=== PATIENT | male | born 1950 | race Caucasian/White ===

== ENCOUNTER 2017-04-05 20:13 | Inpatient (IN) | payer MEDICARE ==
[~2017-04-05] VITALS: Ht 196.8 cm; Wt 116.8 kg
[~2017-04-05 20:13] MED LIST: ASPI325T24 PO; CENTTAB9 PO; GLIM2TAB PO; GLUCTAB PO; LOFI54TA PO; LOSA50TA PO; METF500 PO; NITR0.4S SL; PROT40TA PO; ROSU40 PO; XANA1TAB6 PO; [UNRECOGNIZED DRUG - CODE] PO
[2017-04-05 20:26] VITALS: BP 136/85; PULSE 127; RESP 20; TEMP 98.5; O2SAT 92
[2017-04-05] MEDS ORDERED: SODIUM CHLOR 0.9% 1000 ML INJ 1,000 ML IV SCH (20:34)
[2017-04-05] MEDS ORDERED: GLIM2TAB PO (20:43)
[2017-04-05] MEDS ORDERED: ASPI325T33 PO (20:43)
[2017-04-05] MEDS ORDERED: LOSA50TA PO (20:43)
[2017-04-05] MEDS ORDERED: XANA1TAB2 PO (20:43)
[2017-04-05] MEDS ORDERED: METF500 PO (20:43)
[2017-04-05] MEDS ORDERED: PENT1TAB8 (20:43)
[2017-04-05] MEDS ORDERED: LIPI10TA PO (20:43)
[2017-04-05] MEDS ORDERED: SODIUM CHLORIDE 0.9% FLUSH 10 ML FLUSH IVF PRN (20:45)
[2017-04-05] MEDS ORDERED: ATENOLOL 25 MG TAB PO ONE (20:45)
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
--- NOTE | 2017-04-05 21:24 | RADRPT ---
EXAM DATE/TIME: 04/05/2017 20:47 [facility] COMPARISON: No previous studies available for comparison. INDICATIONS : Fall this evening. MEDICAL HISTORY : Diabetes mellitus type II. SURGICAL HISTORY : None. ENCOUNTER: Initial ACUITY: 1 day PAIN SCORE: 2/10 LOCATION: Bilateral upper chest FINDINGS: A single view of the chest demonstrates the lungs to be symmetrically aerated without evidence of mas s, infiltrate or effusion. The cardiomediastinal contours are unremarkable. Osseous structures are intact. CONCLUSION: 1. No active disease. There is a mildly tortuous aorta. Herberth Nicole MD on April 05, 2017 at 21:22 Board Certified Radiologist. This report was verified electronically.
--- NOTE | 2017-04-05 21:26 | RADRPT ---
EXAM DATE/TIME: 04/05/2017 20:50 [facility] COMPARISON: No previous studies available for comparison. INDICATIONS : Bilateral elbow pain post fall this p.m. MEDICAL HISTORY : Diabetes mellitus type II. SURGICAL HISTORY : None. ENCOUNTER: Initial ACUITY: 1 day PAIN SCORE: 7/10 LOCATION: Bilateral upper extremity FINDINGS: Multiple view examination of the left elbow demonstrates no soft tissue swelling, joint effusion, or fracture. The osseous structures are in normal alignment. Bony mineralization is normal. CONCLUSION: Unremarkable examination of the left elbow. Herberth Nicole MD on April 05, 2017 at 21:23 Board Certified Radiologist. This report was verified electronically.
--- NOTE | 2017-04-05 21:27 | RADRPT ---
EXAM DATE/TIME: 04/05/2017 20:53 [facility] COMPARISON: No previous studies available for comparison. INDICATIONS : Bilateral foot pain post fall this p.m. MEDICAL HISTORY : Diabetes mellitus type II. SURGICAL HISTORY : None. ENCOUNTER: Initial ACUITY: 1 day PAIN SCORE: 9/10 LOCATION: Bilateral foot FINDINGS: Three view examination of the left foot demonstrates no soft tissue swelling, dislocation, or fractur e. The tarsal bones appear intact. The interphalangeal and metatarsophalangeal joints are intact. The calcaneus is intact. Bony mineralization is normal. CONCLUSION: 1. No acute findings. Herberth Nicole MD on April 05, 2017 at 21:24 Board Certified Radiologist. This report was verified electronically.
--- NOTE | 2017-04-05 21:31 | RADRPT ---
EXAM DATE/TIME: 04/05/2017 20:57 [facility] COMPARISON: FOOT LEFT COMPLETE ([id number]), April 05, 2017, 20:53. INDICATIONS : Bilateral foot pain post fall this p.m. MEDICAL HISTORY : Diabetes mellitus type II. SURGICAL HISTORY : right hip surgery ENCOUNTER: Initial ACUITY: 1 day PAIN SCORE: 9/10 LOCATION: Bilateral feet FINDINGS: Number there is a dislocation of the proximal interphalangeal joint of the second toe. No acute fract ure identified. No bony destructive changes. Mild osteoarthritis. CONCLUSION: 1. Dislocation of the second toe at the proximal interphalangeal joint. No acute fracture identified. Herberth Nicole MD on April 05, 2017 at 21:26 Board Certified Radiologist. This report was verified electronically.
--- NOTE | 2017-04-05 21:32 | RADRPT ---
EXAM DATE/TIME: 04/05/2017 21:00 [facility] COMPARISON: No previous studies available for comparison. INDICATIONS : Bilateral knee pian post fall this p.m. MEDICAL HISTORY : Diabetes mellitus type II. SURGICAL HISTORY : orif right femur ENCOUNTER: Initial ACUITY: 1 day PAIN SCORE: 8/10 LOCATION: Bilateral knee FINDINGS: Four view examination of the right knee demonstrates no evidence of fracture or dislocation. Bony mi neralization is normal. The articular surfaces demonstrate mild osteoarthritis. The suprapatellar so ft tissues have a normal configuration. CONCLUSION: 1. There is mild osteoarthritis of the right knee. Previous patricia fixation of the right femur. Herberth Nicole MD on April 05, 2017 at 21:29 Board Certified Radiologist. This report was verified electronically.
--- NOTE | 2017-04-05 21:33 | RADRPT ---
EXAM DATE/TIME: 04/05/2017 21:01 [facility] COMPARISON: No previous studies available for comparison. INDICATIONS : Bilateral knee pain post fall this p.m. MEDICAL HISTORY : Diabetes mellitus type II. SURGICAL HISTORY : orif R/ femur ENCOUNTER: Initial ACUITY: 1 day PAIN SCORE: 8/10 LOCATION: Bilateral knee FINDINGS: There is moderate osteoarthritis at the medial joint compartment. Small joint effusion. No acute frac ture or subluxation. CONCLUSION: 1. Moderate osteoarthritis left knee with small joint effusion. No acute fracture. Herberth Nicole MD on April 05, 2017 at 21:30 Board Certified Radiologist. This report was verified electronically.
[2017-04-05 21:43] LABS: AUTOMATED NEUTROPHIL # 10.4 TH/MM3 (1.8-7.7); BASOPHIL % 0.3 % (0.0-2.0); EOSINOPHIL % 0.1 % (0.0-4.0); HEMATOCRIT 48.2 % (39.0-51.0); HEMO FLAGS DIFF FINAL; LYMPH % 7.4 % (9.0-44.0); LYMPHOCYTE # 0.9 TH/MM3 (1.0-4.8); MEAN CELL VOLUME 101.8 FL (80.0-100.0); MEAN CORPUSCULAR HEMOGLOBIN 34.3 PG (27.0-34.0); MEAN CORPUSCULAR HGB CONC 33.7 % (32.0-36.0); MONO % 7.1 % (0.0-8.0); NEUT % 85.1 % (16.0-70.0); PLATELET COUNT 188 TH/MM3 (150-450); RED BLOOD COUNT 4.74 MIL/MM3 (4.50-5.90); RED CELL DISTRIBUTION WIDTH 13.3 % (11.6-17.2); WHITE BLOOD COUNT 12.3 TH/MM3 (4.0-11.0)
--- NOTE | 2017-04-05 21:47 | RADRPT ---
EXAM DATE/TIME: 04/05/2017 20:49 [facility] COMPARISON: No previous studies available for comparison. INDICATIONS : Bilateral elbow pain post fall this p.m. MEDICAL HISTORY : Diabetes mellitus type II. SURGICAL HISTORY : ORIF R/ femur ENCOUNTER: Initial ACUITY: 1 day PAIN SCORE: 9/10 LOCATION: Bilateral elbow FINDINGS: Multiple view examination of the right elbow demonstrates no soft tissue swelling, joint effusion, or fracture. The osseous structures are in normal alignment. Bony mineralization is normal. CONCLUSION: Unremarkable examination of the right elbow. Herberth Nicole MD on April 05, 2017 at 21:44 Board Certified Radiologist. This report was verified electronically.
[2017-04-05 21:57] LABS: APTT (PATIENT) 26.2 SEC (24.3-30.1); PROTHROMBIN TIME - PATIENT 11.1 SEC (9.8-11.6)
[2017-04-05 22:10] LABS: POTASSIUM 4.5 MEQ/L (3.5-5.1)
--- NOTE | 2017-04-05 22:18 | PD ---
Physical Exam Narrative I was asked by Dr. Taylor to reduce patient's dislocated toe. Please see her documentation for full H&P. Data Data Last Documented VS Vital Signs Date Time Temp Pulse Resp B/P Pulse Ox O2 Delivery O2 Flow Rate FiO2 04/05/17 20:26 98.5 127 20 136/85 92 Orders Elbow, Complete (4 Vws) (04/05/17 20:34) Foot, Complete ([id number]) (04/05/17 20:34) Knee, Complete (4vws) (04/05/17 20:34) Elbow, Complete (4 Vws) (04/05/17 20:34) Foot, Complete ([id number]) (04/05/17 20:34) Knee, Complete (4vws) (04/05/17 20:34) Basic Metabolic Panel (Bmp) (04/05/17 20:34) Complete Blood Count With Diff (04/05/17 20:34) Prothrombin Time / Inr (Pt) (04/05/17 20:34) Act Partial Throm Time (Ptt) (04/05/17 20:34) Urinalysis - C+S If Indicated (04/05/17 20:34) Chest, Single Ap (04/05/17 20:34) Iv Access Insert/Monitor (04/05/17 20:34) Ecg Monitoring (04/05/17 20:34) Oximetry (04/05/17 20:34) Sodium Chlor 0.9% 1000 Ml Inj (Ns 1000 M (04/05/17 20:34) Sodium Chloride 0.9% Flush (Ns Flush) (04/05/17 20:45) Electrocardiogram (04/05/17 ) Creatine Kinase (Cpk) (04/05/17 20:34) Atenolol (Tenormin) (04/05/17 20:45) Cath For Specimen (04/05/17 21:58) Toe (Min 2vws) (04/05/17 ) Morphine Inj (Morphine Inj) (04/05/17 22:30) CKMB (04/05/17 21:20) CKMB% (04/05/17 21:20) Labs Laboratory Tests Test 04/05/17 21:20 White Blood Count 12.3 TH/MM3 Red Blood Count 4.74 MIL/MM3 Hemoglobin 16.3 GM/DL Hematocrit 48.2 % Mean Corpuscular Volume 101.8 FL Mean Corpuscular Hemoglobin 34.3 PG Mean Corpuscular Hemoglobin 33.7 % Concent Red Cell Distribution Width 13.3 % Platelet Count 188 TH/MM3 Mean Platelet Volume 8.1 FL Neutrophils (%) (Auto) 85.1 % Lymphocytes (%) (Auto) 7.4 % Monocytes (%) (Auto) 7.1 % Eosinophils (%) (Auto) 0.1 % Basophils (%) (Auto) 0.3 % Neutrophils # (Auto) 10.4 TH/MM3 Lymphocytes # (Auto) 0.9 TH/MM3 Monocytes # (Auto) 0.9 TH/MM3 Eosinophils # (Auto) 0.0 TH/MM3 Basophils # (Auto) 0.0 TH/MM3 CBC Comment DIFF FINAL Differential Comment Prothrombin Time 11.1 SEC Prothromb Time International 1.0 RATIO Ratio Activated Partial 26.2 SEC Thromboplast Time Sodium Level 137 MEQ/L Potassium Level 4.5 MEQ/L Chloride Level 100 MEQ/L Carbon Dioxide Level 19.0 MEQ/L Anion Gap 18 MEQ/L Blood Urea Nitrogen 11 MG/DL Creatinine 2.26 MG/DL Estimat Glomerular Filtration 29 ML/MIN Rate Random Glucose 206 MG/DL Calcium Level 9.7 MG/DL Total Creatine Kinase 2381 U/L [facility] Supervised Visit with RADHA: No Narrative Course 2240 Repeat x-ray shows no change. Patient's toe was reassessed. I suspect this is likely patient's chronic issue with this toe. I discussed this with Dr. Taylor, who will reassess patient. Procedures Procedure Narrative Patient reports that he has had issues with that toe from previous fracture that was not reduced properly and feels his toe might be slightly angulated more than normal, but is uncertain. Verbal consent was obtained. Dislocated toe was attempted to be reduced. [place] to be a successful reduction. Will check repeat x-rays. Affected toe to be morgan taped by DAVON. Jatin Clements Apr 05, 2017 22:17
[2017-04-05] MEDS ORDERED: MORPHINE SULFATE 4 MG/ML INJ IV PUSH ONE (22:30)
[2017-04-05 22:48] LABS: BLOOD, URINE MOD (NEG); GLUCOSE,URINE NEG (NEG); HYALINE CAST, URINE 1 /lpf (RARE); KETONE, URINE NEG (NEG); NITRITE,URINE NEG (NEG); URINE COLOR LIGHT-YELLOW (YELLW/STRAW)
--- NOTE | 2017-04-05 22:57 | RADRPT ---
EXAM DATE/TIME: 04/05/2017 22:28 [facility] COMPARISON: No previous studies available for comparison. INDICATIONS : Evaluate post reduction right foot, second digit toe. MEDICAL HISTORY : Diabetes mellitus type II. SURGICAL HISTORY : orif R/ femur ENCOUNTER: Subsequent ACUITY: 1 day PAIN SCORE: 8/10 LOCATION: Right foot, second digit FINDINGS: Dislocation of the second toe remains at the proximal interphalangeal joint. No fracture seen. CONCLUSION: 1. Persistent dislocation of the right second toe. Herberth Nicole MD on April 05, 2017 at 22:54 Board Certified Radiologist. This report was verified electronically.
[2017-04-05 22:59] LABS: COMMENT (UR) CULT NOT INDICATED; CULTURE IF INDICATED CULT NOT INDICATED
[2017-04-05 23:08] LABS: CKMB 3.1 NG/ML (0.5-3.6)
[2017-04-05] MEDS ORDERED: ONDANSETRON HCL 4 MG/2 ML VIAL IVP PRN (23:30)
[2017-04-05] MEDS ORDERED: SODIUM CHLORIDE 0.9% FLUSH 10 ML FLUSH IV FLUSH PRN (23:30)
[2017-04-05] MEDS ORDERED: NALOXONE HCL 0.4 MG/ML AMP IV PRN (23:30)
[2017-04-05] MEDS ORDERED: ACETAMINOPHEN 325 MG TAB PO PRN (23:30)
[2017-04-05 23:45] VITALS: BP 144/82; PULSE 108; RESP 16; O2SAT 100
[2017-04-06] VITALS (7 sets, daily range): BP systolic 130–187; BP diastolic 78–99; PULSE 63–109; RESP 14–18; TEMP 96.2–97.8; O2SAT 96–100
[2017-04-06] MEDS: HEPARIN SODIUM - SQ 10,000 UNITS/ML VIAL SQ SCH ×3 (00:15→22:15)
[2017-04-06] MEDS: SODIUM CHLOR 0.9% 1000 ML INJ 1,000 ML IV SCH ×3 (00:15→17:30)
[2017-04-06] MEDS: MORPHINE SULFATE 4 MG/ML INJ IV PRN ×5 (02:55→22:14)
[2017-04-06] MEDS ORDERED: ATENOLOL 25 MG TAB PO ONE (03:00)
[2017-04-06 04:04] LABS: AUTOMATED NEUTROPHIL # 5.6 TH/MM3 (1.8-7.7); BASOPHIL % 0.6 % (0.0-2.0); EOSINOPHIL % 0.2 % (0.0-4.0); HEMATOCRIT 41.3 % (39.0-51.0); HEMO FLAGS DIFF FINAL; LYMPH % 15.3 % (9.0-44.0); LYMPHOCYTE # 1.1 TH/MM3 (1.0-4.8); MEAN CELL VOLUME 100.7 FL (80.0-100.0); MEAN CORPUSCULAR HEMOGLOBIN 34.8 PG (27.0-34.0); MEAN CORPUSCULAR HGB CONC 34.6 % (32.0-36.0); MONO % 7.7 % (0.0-8.0); NEUT % 76.2 % (16.0-70.0); PLATELET COUNT 127 TH/MM3 (150-450); RED CELL DISTRIBUTION WIDTH 12.9 % (11.6-17.2); WHITE BLOOD COUNT 7.4 TH/MM3 (4.0-11.0)
[2017-04-06 04:41] LABS: BICARBONATE 28.6 MEQ/L (21.0-32.0)
[2017-04-06 04:45] LABS: POTASSIUM 4.8 MEQ/L (3.5-5.1)
[2017-04-06 05:06] LABS: CKMB 7.9 NG/ML (0.5-3.6)
[2017-04-06] MEDS: LOSARTAN 50 MG TAB PO SCH ×2 (08:29→19:54)
[2017-04-06] MEDS: SODIUM CHLORIDE 0.9% FLUSH 10 ML FLUSH IV FLUSH SCH ×2 (08:31→20:01)
[2017-04-06] MEDS ORDERED: GLUCAGON 1 MG/ML VIAL OTHER PRN (09:15)
[2017-04-06] MEDS ORDERED: LOSARTAN 50 MG TAB PO SCH (09:15)
[2017-04-06] MEDS ORDERED: DEXTROSE 50% IN WATER 50 ML VIAL(D50) IV PRN (09:15)
[2017-04-06] MEDS ORDERED: LIDOCAINE HCL 1% 20 ML VIAL INFIL ONE (10:00)
--- NOTE | 2017-04-06 10:10 | RADRPT ---
EXAM DATE/TIME: 04/06/2017 09:40 [facility] COMPARISON: SPINE LUMBAR COMPLETE W/OBLIQ, April 15, 2014, 9:51. INDICATIONS : Right-sided lower back pain after fall yesterday. MEDICAL HISTORY : None. SURGICAL HISTORY : Lumbar laminectomy. ENCOUNTER: Initial ACUITY: 2 days PAIN SCORE: 10/10 LOCATION: Right lower back. FINDINGS: There are degenerative changes in the lumbar spine. There is loss of vertebral body height at L1 by approximately 30%. There is minimal compression of T11. There is minimal compression of L3. There is some sclerosis of L5. Anterior osteophytes are noted. Mild scoliosis is evident. Degenerative changes are present in the facets. CONCLUSION: 1. Abnormal lumbar spine series. 2. There has been mild progression from 04/15/2014. The most significant progression has been at L3. Evan Rojas MD FACR on April 06, 2017 at 10:02 Board Certified Radiologist. This report was verified electronically.
--- NOTE | 2017-04-06 10:31 | RADRPT ---
EXAM DATE/TIME: 04/06/2017 09:42 [facility] COMPARISON: No previous studies available for comparison. INDICATIONS : Right lower back pain after fall last night. MEDICAL HISTORY : None. SURGICAL HISTORY : Lumbar laminectomy. ENCOUNTER: Initial ACUITY: 2 days PAIN SCORE: 10/10 LOCATION: Sacrum. FINDINGS: Two views of the sacrum reveal degenerative changes without fracture. There is loss of vertebral bod y height at L5. CONCLUSION: Anatomic alignment without fracture. Evan Rojas MD FACR on April 06, 2017 at 10:24 Board Certified Radiologist. This report was verified electronically.
[2017-04-06] MEDS: INSULIN NovoLIN REGULAR SUPPLEMENTAL SCALE SQ SCH ×3 (11:00→20:04)
[2017-04-06] MEDS: DOCUSATE SODIUM 50 MG/SENNA 8.6 MG TAB PO PRN (11:40)
[2017-04-06] MEDS: MAGNESIUM HYDROXIDE SUSP 30 ML CUP PO PRN (11:40)
[2017-04-06] MEDS: ASPIRIN EC 325 MG TABEC PO SCH (11:40)
[2017-04-06] MEDS: FAMOTIDINE 20 MG TAB PO SCH ×2 (11:41→19:54)
--- NOTE | 2017-04-06 13:18 | HHI.PR ---
Objective Objective Results - Vital Signs Date Time Temp Pulse Resp B/P Pulse Ox O2 Delivery O2 Flow Rate FiO2 04/06/17 12:00 97.3 66 18 167/92 98 04/06/17 08:00 97.8 94 18 164/97 99 04/06/17 04:00 97.1 106 16 172/97 96 04/06/17 01:14 97.6 109 16 187/94 98 04/06/17 00:44 100 14 130/78 99 Room Air 04/05/17 23:45 108 16 144/82 100 Room Air 04/05/17 20:26 98.5 127 20 136/85 92 I/O 04/05/17 04/05/17 04/05/17 04/06/17 04/06/17 04/06/17 07:00 15:00 23:00 07:00 15:00 23:00 Intake Total 780 ml 909 ml Balance 780 ml 909 ml Intake Oral 780 ml IV Total 909 ml # Voids 1 # Bowel Movements 0 Result Diagram: 04/06/17 0327 04/06/17 0327 Other Results Laboratory Tests Test 04/05/17 04/05/17 04/06/17 04/06/17 21:20 22:15 03:27 11:56 White Blood Count 12.3 7.4 Red Blood Count 4.74 4.10 Hemoglobin 16.3 14.3 Hematocrit 48.2 41.3 Mean Corpuscular Volume 101.8 100.7 Mean Corpuscular Hemoglobin 34.3 34.8 Mean Corpuscular Hemoglobin 33.7 34.6 Concent Red Cell Distribution Width 13.3 12.9 Platelet Count 188 127 Mean Platelet Volume 8.1 8.4 Neutrophils (%) (Auto) 85.1 76.2 Lymphocytes (%) (Auto) 7.4 15.3 Monocytes (%) (Auto) 7.1 7.7 Eosinophils (%) (Auto) 0.1 0.2 Basophils (%) (Auto) 0.3 0.6 Neutrophils # (Auto) 10.4 5.6 Lymphocytes # (Auto) 0.9 1.1 Monocytes # (Auto) 0.9 0.6 Eosinophils # (Auto) 0.0 0.0 Basophils # (Auto) 0.0 0.0 CBC Comment DIFF FINAL DIFF FINAL Differential Comment Prothrombin Time 11.1 Prothromb Time International 1.0 Ratio Activated Partial 26.2 Thromboplast Time Sodium Level 137 139 Potassium Level 4.5 4.8 Chloride Level 100 103 Carbon Dioxide Level 19.0 28.6 Anion Gap 18 7 Blood Urea Nitrogen 11 13 Creatinine 2.26 1.96 Estimat Glomerular Filtration 29 34 Rate Random Glucose 206 199 Calcium Level 9.7 8.8 Total Creatine Kinase 2381 6159 4999 Creatine Kinase MB 3.1 7.9 Creatine Kinase MB % 0.1 0.1 Urine Color LIGHT-YELLOW Urine Turbidity CLEAR Urine pH 6.0 Urine Specific [place] 1.005 Urine Protein TRACE Urine Glucose (UA) NEG Urine Ketones NEG Urine Occult Blood MOD Urine Nitrite NEG Urine Bilirubin NEG Urine Urobilinogen LESS THAN 2.0 Urine Leukocyte Esterase NEG Urine RBC 1 Urine WBC LESS THAN 1 Urine Hyaline Casts 1 Microscopic Urinalysis Comment CULT NOT INDICATED Physical Exam Physical Exam pt is seen & examined d/w PT d/w Beena d/w RN see Orders see H&P by beena IVF/ f/u CPK analgesic PT alexa ss for dc planning will f/u Alexis Cintron MD Apr 06, 2017 13:18
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
--- NOTE | 2017-04-06 18:17 | RADRPT ---
EXAM DATE/TIME: 04/06/2017 17:46 [facility] COMPARISON: No previous studies available for comparison. INDICATIONS : Inability to ambulate. Back pain, frequent falls. MEDICAL HISTORY : Diabetes mellitus type 2. Hypertension. SURGICAL HISTORY : Tonsillectomy. Discectomy, lumbar. Inguinal hernia repair. Right femur patricia. ENCOUNTER: Initial ACUITY: 1 day PAIN SCORE: 4/10 LOCATION: [facility] TECHNIQUE: Multiplanar multisequence MRI of the thoracic spine was performed. FINDINGS: There is no fracture or subluxation of the thoracic spine. Vertebral bodies have normal height. No si gnificant disc space narrowing demonstrated. There is a small posterior disc protrusion at C7/T1 and a tiny posterior disc protrusion at T1/T2 and T2/T3. There is no spinal stenosis. Mild bilateral fora adis encroachment seen at T1/T2. Thoracic cord has normal signal and morphology throughout. Conus terminus is normal at the level of L 1. CONCLUSION: No acute abnormality demonstrated of the thoracic spine. Mild, mainly upper thoracic and cervicothora cic junction region degenerative changes as above. Associated mild bilateral foraminal stenosis at T1 /T2. No spinal stenosis. Nehemiah Bright MD on April 06, 2017 at 18:12 Board Certified Radiologist. This report was verified electronically.
--- NOTE | 2017-04-06 18:30 | RADRPT ---
EXAM DATE/TIME: 04/06/2017 17:46 [facility] COMPARISON: No previous studies available for comparison. INDICATIONS : Inability to ambulate. Back pain, frequent falls. MEDICAL HISTORY : Hypertension. Diabetes mellitus type 2. SURGICAL HISTORY : Tonsillectomy. Inguinal hernia repair. Discectomy, lumbar. Right femur patricia. ENCOUNTER: Initial ACUITY: 1 day PAIN SCORE: 4/10 LOCATION: [facility] TECHNIQUE: Multiplanar, multisequence MRI examination of the cervical spine was performed. FINDINGS: At C2-3 there is no significant abnormality. At C3-4 there is a broadbase posterior disc ossified complex with moderate stenosis in AP dimension r esulting in mild cord compression. There is also lateral recess and foraminal stenosis bilaterally. At C4-5, C5-6, C6-7 and C7-T1 there is mild posterior osteophytic ridging but without CORD impingemen t. Minimal lateral recess and foraminal encroachment at these levels as well. No acute fracture. No cord signal abnormality. CONCLUSION: 1. At C3-4 there is a focal broad-based disc osteophyte complex resulting in moderate canal stenosis, mild cord compression and moderate to severe lateral recess and foraminal encroachment bilaterally. 2. Less severe degenerative change in the remainder of the cervical spine without additional cord imp ingement. No acute fracture. Herberth Nicole MD on April 06, 2017 at 18:22 Board Certified Radiologist. This report was verified electronically.
--- NOTE | 2017-04-06 18:37 | RADRPT ---
EXAM DATE/TIME: 04/06/2017 17:46 [facility] COMPARISON: No previous studies available for comparison. INDICATIONS : Inability to ambulate. Back pain, frequent falls. MEDICAL HISTORY : Hypertension. Diabetes mellitus type 2. SURGICAL HISTORY : Tonsillectomy. Discectomy, lumbar. Inguinal hernia repair. Right femur patricia. ENCOUNTER: Initial ACUITY: 1 day PAIN SCORE: 4/10 LOCATION: [facility] TECHNIQUE: Multiplanar multisequence MRI of the lumbar spine was performed without contrast. FINDINGS: There are moderate compression deformities of L1, L3, L4 and L5 which appear to be old. Mild compress ion deformity L2. No subluxation. No significant marrow edema. At T12-L1 and L1-2 there is no significant abnormality at the disc interspace. At L2-3 there is a broad-based disc osteophyte complex and facet arthropathy with focal moderate to s evere thecal stenosis and lateral recess and foraminal encroachment bilaterally. At L3-4 there is a posterior disc bulge and facet arthropathy but without significant central canal o r bony foraminal stenosis. L4-5 there is a broad-based disc osteophyte complex and mild disc bulge or protrusion with facet arth ropathy. There is a moderate central canal stenosis and mild lateral recess and foraminal stenosis bi laterally. Posterior laminectomy defect present. L5-S1 there is a disc bulge but without significant bony canal stenosis. Mild foraminal encroachment. CONCLUSION: 1. Compression deformities at every level of the lumbar spine as above which are probably old. 2. At L2-3 there is focal moderate to severe canal stenosis secondary to disc osteophyte complex and facet arthropathy. 3. At L4-5 there is moderate central canal stenosis secondary to facet arthropathy and disc bulge or protrusion. 4. There is posterior laminectomy defect at L4 and L5. Herberth Nicole MD on April 06, 2017 at 18:31 Board Certified Radiologist. This report was verified electronically.
--- NOTE | 2017-04-06 18:52 | MB ---
cc: LETA GAY DATE OF CONSULTATION 04/06/17 REASON FOR CONSULTATION Progressive weakness, elevated CPK. HISTORY OF PRESENT ILLNESS Connor is a 66-year-old man who for the past 6 months or so has noted progressive weakness in both upper and lower extremities which has been gradually progressive. He has also developed a long history of orthostatic hypotension. He had an episode where he suddenly got up quickly, felt very weak and fell to the floor. He was unable to get up because of the significant weakness. He was brought to the hospital. There was no tonic-clonic activity. Denies any double vision. He denies any ptosis or swallowing difficulty. He was found to have an elevated CPK, initially yesterday was 2381; earlier today was 6159, has since come down to 4999. PAST MEDICAL HISTORY He has a history of orthostatic hypotension. Mitral valve prolapse, lumbar stenosis, lumbar surgery. Inguinal cyst removal, tonsillectomy, right hip pinning, right femoral patricia. MEDICATIONS His medications at home: 1. Xanax. 2. Aspirin. 3. Losartan. 4. Lipitor. 5. Glipizide. 6. Glucophage. 7. Pentazocine. ALLERGIES ALLERGIES TO CONTRAST MEDIA, DIFLUCAN, NSAIDS, TYLENOL. NEUROLOGIC EXAMINATION VITAL SIGNS: Blood pressure is 157/92, pulse 66, respiratory rate is 18, temperature 97 degrees. NEURO: Higher cortical functions normal. Cranial nerves are intact. There is no ptosis. His extraocular motility is normal. There is no facial diplegia. On motor examination he has 5/5 strength in the deltoids symmetric, 4+/5 biceps symmetric, 4+/5 triceps symmetric, 4+/5 interossei symmetric. The iliopsoas strength is 4/5 symmetric, quads 4/5 symmetric, hamstring 4/5 symmetric, ____ 4/5 symmetric. He does have atrophy diffusely. No fasciculations. Sensory exam is intact. He is areflexic in the upper and lower extremities. There is no Babinski present. LABORATORY DATA The sodium is 139, potassium 4.8, chloride 103, CO2 28.6, BUN is 13, creatinine 1.96, glucose 199. CPK today 4999. His white count is 7400, hemoglobin 14.3, hematocrit 41%, platelets 127,000, PT 11.1, INR 1, APTT 26.2. IMPRESSION Generalized weakness, rule out cervical or thoracic stenosis with cord compression, rule out neuropathy such as CIDP. Myopathy is a consideration, however, the elevated CPK may have been due to his weakness secondarily. RECOMMENDATIONS I would like to proceed with an MRI of the cervical, thoracic and lumbar spine. Will follow the CPK. If the CPK is persistently elevated consider muscle biopsy. May need to consider lumbar puncture to further evaluate for CIDP or also EMG nerve conduction study as well. MD MOHAN Grider/VASILIY /4:23 PM /6:43 PM
[2017-04-06] MEDS: GLIMEPIRIDE 2 MG TAB PO SCH (19:54)
[2017-04-06] MEDS ORDERED: metFORMIN HCL 500 MG TAB PO SCH (21:00)
[2017-04-07] VITALS (9 sets, daily range): BP systolic 162–193; BP diastolic 85–93; PULSE 63–96; RESP 17–18; TEMP 97.2–97.9; O2SAT 95–100
[2017-04-07] MEDS: MORPHINE SULFATE 4 MG/ML INJ IV PRN ×3 (03:04→12:00)
[2017-04-07] MEDS: SODIUM CHLOR 0.9% 1000 ML INJ 1,000 ML IV SCH ×4 (03:15→16:18)
[2017-04-07] MEDS: INSULIN NovoLIN REGULAR SUPPLEMENTAL SCALE SQ SCH ×4 (05:48→21:20)
[2017-04-07 06:57] LABS: HEMATOCRIT 36.3 % (39.0-51.0); PLATELET COUNT 101 TH/MM3 (150-450); RED BLOOD COUNT 3.63 MIL/MM3 (4.50-5.90); RED CELL DISTRIBUTION WIDTH 12.7 % (11.6-17.2); REVIEW FLAG FINAL; WHITE BLOOD COUNT 4.8 TH/MM3 (4.0-11.0)
[2017-04-07 07:18] LABS: BICARBONATE 25.9 MEQ/L (21.0-32.0); POTASSIUM 4.3 MEQ/L (3.5-5.1)
[2017-04-07 07:58] LABS: CKMB 3.1 NG/ML (0.5-3.6)
[2017-04-07] MEDS: DOCUSATE SODIUM 50 MG/SENNA 8.6 MG TAB PO PRN (08:28)
[2017-04-07] MEDS: ASPIRIN EC 325 MG TABEC PO SCH (08:28)
[2017-04-07] MEDS: LOSARTAN 50 MG TAB PO SCH ×2 (08:28→20:12)
[2017-04-07] MEDS: MAGNESIUM HYDROXIDE SUSP 30 ML CUP PO PRN (08:29)
[2017-04-07] MEDS: FAMOTIDINE 20 MG TAB PO SCH ×2 (08:29→20:13)
[2017-04-07] MEDS: SODIUM CHLORIDE 0.9% FLUSH 10 ML FLUSH IV FLUSH SCH ×2 (09:00→12:00)
[2017-04-07] MEDS: HEPARIN SODIUM - SQ 10,000 UNITS/ML VIAL SQ SCH (11:43)
[2017-04-07] MEDS: MUPIROCIN 2% OINT 22 GM TUBE TOPICAL SCH (11:46)
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
[2017-04-07] MEDS ORDERED: ACETAMINOPHEN/HYDROcodone 325 MG/7.5 MG TAB PO PRN (13:30)
--- NOTE | 2017-04-07 13:56 | HHI.PR ---
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 was seen by podiatry Review of Systems Constitutional Constitutional Remarks 12 point ros completed, negative except as noted above Vitals/Results Intake & Output 04/06/17 04/06/17 04/07/17 15:00 23:00 07:00 Intake Total 1559 ml 240 ml 240 ml Output Total 400 ml 400 ml Balance 1559 ml -160 ml -160 ml Intake Oral 650 ml 240 ml 240 ml IV Total 909 ml Output Urine Total 400 ml 400 ml # Voids 2 # Bowel Movements 0 0 0 Vital Signs Vital Signs Date Time Temp Pulse Resp B/P Pulse Ox O2 Delivery O2 Flow Rate FiO2 04/07/17 11:48 97.9 66 18 193/85 95 04/07/17 08:48 16 04/07/17 08:00 97.6 64 18 164/91 100 04/07/17 04:11 97.2 64 17 168/85 100 04/07/17 00:35 97.7 63 17 183/92 100 04/06/17 20:35 96.8 65 18 184/97 100 04/06/17 16:00 96.2 63 18 185/99 100 CBC/BMP: 04/07/17 0609 04/07/17 0609 Lab Results Laboratory Tests Test 04/07/17 06:09 White Blood Count 4.8 TH/MM3 Red Blood Count 3.63 MIL/MM3 Hemoglobin 12.7 GM/DL Hematocrit 36.3 % Mean Corpuscular Volume 100.0 FL Mean Corpuscular Hemoglobin 35.0 PG Mean Corpuscular Hemoglobin 35.0 % Concent Red Cell Distribution Width 12.7 % Platelet Count 101 TH/MM3 Mean Platelet Volume 8.1 FL Sodium Level 139 MEQ/L Potassium Level 4.3 MEQ/L Chloride Level 105 MEQ/L Carbon Dioxide Level 25.9 MEQ/L Anion Gap 8 MEQ/L Blood Urea Nitrogen 12 MG/DL Creatinine 1.38 MG/DL Estimat Glomerular Filtration 52 ML/MIN Rate Random Glucose 156 MG/DL Calcium Level 7.7 MG/DL Total Creatine Kinase 2957 U/L Creatine Kinase MB 3.1 NG/ML Creatine Kinase MB % 0.1 % Physical Exam General General Appearance: Well Developed, No Acute Distress, Comfortable, Obese Eyes Eye Exam: Pupils Equal, Pupils Reactive Ears & Nose Ears & Nose Exam: Nasal Mucosa Felt Throat Throat Exam: Oral Mucosa Felt & Moist Neck Neck Exam: Neck Supple, Trachea Midline Pulmonary Resp Exam: Clear Bilaterally, No Distress Cardiology CV Exam: Regular, Good Perfusion Gastrointestinal/Abdomen GI Exam: Soft, Non-Tender, Bowel Sounds Present, Non-Distended Musculoskeletal MS Exam: Joints Intact Integumentary Skin Exam: Warm, Dry Extremeties Extremities Exam: Pedal Pulses Palpable, Trace Edema Extremeties Remarks mild erythema both feet, tender to touch Neurologic Neuro Exam: Alert, Awake, Oriented, Speech Clear, Moving All Extremities, No Focal Deficits Psychiatric Psych Exam: Appropriate Responses VTE Prophylaxis VTE Prophylaxis Meds: Heparin PUD Prophylasis PUD Remarks Pepcid Assessment/Plan Assessment/Plan 1. Nontraumatic rhabdomyolysis, unknown cause. 2. Diabetes type 2, uncontrolled. 3. DUSTY 4. Leukocytosis 5. Right toe dislocation 6. HTN uncontrolled 7. Hx of DVT 8. Low back pain, radiculopathy, acute on chronic 9. Weakness etiology unclear 10. Radiculopathy, CT lumbar spine L2-L3 mod canal stenosis/C 2-C3 mild canal stenosis PLAN Rhabdomyolysis CPK trending down Dec. IVF NS @ 125/hr DUSTY, creat improving follow BMP BP uncontrolled inc. Cozaar to 100 mg PO BID Add Vasotec PRN Add Norvasc accuchecks with AC/HS no oral hypoglycemic due to DUSTY Weakness and acute on chronic back pain evaluated per neurology, work up in progress, rule myopathy, CIDP Cervical and lumbar spine MRI done, results noted consult neurosurgery for evaluation continue with pain management Left foot hallux ulceration right toe dislocation Podiatry evaluated, input appreciate, no surgery recommended needs to f//u podiatry as OP foot care emphasized CM for DC planning, will need SNF, eval for CIR PT eval and tx OT eval Labs in am D/W RN D/W Dr. Cintron D/W pt This pt was seen by myself and Dr. Cintron, this note is written on his behalf. Olivia Weinberg Apr 07, 2017 13:56
[2017-04-07] MEDS ORDERED: amLODIPine BESYLATE 5 MG TAB PO ONE (14:30)
--- NOTE | 2017-04-07 14:52 | HHI.PR ---
Review/Management Diagnosis pregressive weakness mainly of LE--possibly related to lumbar stenosis. Possible cervical myelopathy, but no hyperreflexia/babinski etc. Plan neurosurgery consult Diagnosis/Plan: Subjective Subjective Comments No acute events reported No change in LE or UE weakness. Active Medications Current Medications Medications (Trade) Dose Ordered Sig/Sandie Route Start Time Stop Time Status Last Admin (NS 1000 ml Inj) 1,000 ml @ 70 mls/hr [id number] IV 04/05/17 23:19 04/07/17 11:46 (NS Flush) 2 ml UNSCH PRN IV FLUSH 04/05/17 23:30 (NS Flush) 2 ml BID IV FLUSH 04/06/17 09:00 04/07/17 12:00 (Zofran Inj) 4 mg Q6H PRN IVP 04/05/17 23:30 (Heparin Inj) 5,000 units Q12H SQ 04/06/17 00:00 04/07/17 11:43 (Narcan Inj) 0.4 mg UNSCH PRN IV 04/05/17 23:30 (Morphine Inj) 2 mg Q4H PRN IV 04/06/17 03:00 04/07/17 12:00 (Pepcid) 10 mg BID PO 04/06/17 10:00 04/07/17 08:29 (Ecotrin Ec) 325 mg DAILY PO 04/06/17 10:00 04/07/17 08:28 (Amaryl) 2 mg HS PO 04/06/17 21:00 04/06/17 19:54 (Glucophage) 500 mg HS PO 04/06/17 21:00 Hold 04/06/17 19:53 (D50w (Vial) Inj) 50 ml UNSCH PRN IV 04/06/17 09:15 (Glucagon Inj) 1 mg UNSCH PRN OTHER 04/06/17 09:15 (Tali-Colace) 1 tab BID PRN PO 04/06/17 09:15 04/07/17 08:28 (Milk Of Magnesia Liq) 30 ml DAILY PRN PO 04/06/17 09:15 04/07/17 08:29 (Bactroban 2% Oint) 1 applic DAILY TOPICAL 04/07/17 11:15 04/07/17 11:46 (Vasotec Inj) 1.25 mg Q6H PRN IV PUSH 04/07/17 12:15 (Cozaar) 100 mg BID PO 04/07/17 21:00 (Roxicodone) 5 mg Q4H PRN PO 04/07/17 14:15 (Norvasc) 5 mg DAILY PO 04/08/17 09:00 Allergies Allergies Coded Allergies Diflucan (Verified Allergy, Severe, ANAPHYLAXIS, 07/02/15) Tylenol (Verified Allergy, Severe, 07/02/15) Contrast Media (Verified Allergy, Unknown, 07/02/15) Nonsteroidal Anti-Inflammatory Agts (Verified Allergy, Unknown, 07/02/15) Exam I&O / VS 04/06/17 04/06/17 04/07/17 15:00 23:00 07:00 Intake Total 1559 ml 240 ml 240 ml Output Total 400 ml 400 ml Balance 1559 ml -160 ml -160 ml Intake Oral 650 ml 240 ml 240 ml IV Total 909 ml Output Urine Total 400 ml 400 ml # Voids 2 # Bowel Movements 0 0 0 Vital Signs Date Time Temp Pulse Resp B/P Pulse Ox O2 Delivery O2 Flow Rate FiO2 04/07/17 11:48 97.9 66 18 193/85 95 04/07/17 08:48 16 04/07/17 08:00 97.6 64 18 164/91 100 04/07/17 04:11 97.2 64 17 168/85 100 04/07/17 00:35 97.7 63 17 183/92 100 04/06/17 20:35 96.8 65 18 184/97 100 04/06/17 16:00 96.2 63 18 185/99 100 Exam Comments alert, speech normal MOTOR--5/5 bilateral deltoid, biceps, tricpes, 4/5 bilateral interossei 4/5 bialteral iliopsoas, hamstring and tibialis anterior. 5/5 quads. Objective Radiology Results MRI cervical spine -stenosis at C34 with cord involvement MRI lumbar spine--severe L23 stenosis Micro and Labs Laboratory Tests Test 04/07/17 06:09 White Blood Count 4.8 Red Blood Count 3.63 Hemoglobin 12.7 Hematocrit 36.3 Mean Corpuscular Volume 100.0 Mean Corpuscular Hemoglobin 35.0 Mean Corpuscular Hemoglobin 35.0 Concent Red Cell Distribution Width 12.7 Platelet Count 101 Mean Platelet Volume 8.1 Sodium Level 139 Potassium Level 4.3 Chloride Level 105 Carbon Dioxide Level 25.9 Anion Gap 8 Blood Urea Nitrogen 12 Creatinine 1.38 Estimat Glomerular Filtration 52 Rate Random Glucose 156 Calcium Level 7.7 Total Creatine Kinase 2957 Creatine Kinase MB 3.1 Creatine Kinase MB % 0.1 Cory Yarbrough PhD Apr 07, 2017 14:52
[2017-04-07] MEDS: GLIMEPIRIDE 2 MG TAB PO SCH (20:12)
[2017-04-08] VITALS (11 sets, daily range): BP systolic 144–169; BP diastolic 78–92; PULSE 67–117; RESP 16–18; TEMP 96.7–98.4; O2SAT 97–99
[2017-04-08] MEDS: ENALAPRILAT 1.25 MG/ML VIAL IV PUSH PRN ×2 (00:28→12:59)
[2017-04-08] MEDS: HEPARIN SODIUM - SQ 10,000 UNITS/ML VIAL SQ SCH ×3 (00:29→22:34)
[2017-04-08] MEDS: MORPHINE SULFATE 4 MG/ML INJ IV PRN ×2 (00:29→09:52)
[2017-04-08] MEDS: SODIUM CHLOR 0.9% 1000 ML INJ 1,000 ML IV SCH ×2 (05:45→22:35)
[2017-04-08 06:57] LABS: BICARBONATE 22.7 MEQ/L (21.0-32.0)
[2017-04-08] MEDS: INSULIN NovoLIN REGULAR SUPPLEMENTAL SCALE SQ SCH ×4 (07:00→22:46)
[2017-04-08 07:38] LABS: HEMATOCRIT 35.7 % (39.0-51.0); MEAN CELL VOLUME 100.7 FL (80.0-100.0); MEAN CORPUSCULAR HEMOGLOBIN 34.9 PG (27.0-34.0); MEAN CORPUSCULAR HGB CONC 34.7 % (32.0-36.0); PLATELET COUNT 97 TH/MM3 (150-450); RED BLOOD COUNT 3.55 MIL/MM3 (4.50-5.90); RED CELL DISTRIBUTION WIDTH 12.7 % (11.6-17.2); WHITE BLOOD COUNT 4.3 TH/MM3 (4.0-11.0)
[2017-04-08 07:40] LABS: REVIEW FLAG FINAL
[2017-04-08] MEDS: SODIUM CHLORIDE 0.9% FLUSH 10 ML FLUSH IV FLUSH SCH ×2 (09:00→22:34)
[2017-04-08] MEDS: amLODIPine BESYLATE 5 MG TAB PO SCH (09:50)
[2017-04-08] MEDS: ASPIRIN EC 325 MG TABEC PO SCH (09:50)
[2017-04-08] MEDS: FAMOTIDINE 20 MG TAB PO SCH ×2 (09:50→22:32)
[2017-04-08] MEDS: LOSARTAN 50 MG TAB PO SCH ×2 (09:51→22:33)
[2017-04-08] MEDS: MAGNESIUM HYDROXIDE SUSP 30 ML CUP PO PRN (09:52)
[2017-04-08] MEDS: MUPIROCIN 2% OINT 22 GM TUBE TOPICAL SCH (09:54)
--- NOTE | 2017-04-08 10:12 | HHI.PR ---
Subjective Subjective Remarks c/o low back radiating front and back legs feels strength continues to improve no cp no sob voiding okay appetite ok, no n/v no fever spoke to Dr. Simms, wants to do PT and conservative tx. Had back surgery in the 80s and had multiple complications. Concerned about cervical changes and risk of injury. Agreeable with going to rehab to strengthen. Review of Systems Constitutional Constitutional Remarks 12 point ros completed, negative except as noted above Vitals/Results Intake & Output 04/07/17 04/07/17 04/08/17 15:00 23:00 07:00 Intake Total 2656 ml 1112 ml 930 ml Output Total 300 ml 200 ml 750 ml Balance 2356 ml 912 ml 180 ml Intake Oral 600 ml 240 ml 240 ml IV Total 2056 ml 872 ml 690 ml Output Urine Total 300 ml 200 ml 750 ml # Bowel Movements 0 0 0 Vital Signs Vital Signs Date Time Temp Pulse Resp B/P Pulse Ox O2 Delivery O2 Flow Rate FiO2 04/08/17 08:00 97.6 67 16 169/90 98 04/08/17 06:42 68 04/08/17 04:40 96.8 75 18 153/85 98 04/08/17 00:20 96.7 76 18 168/81 98 04/07/17 20:35 97.5 72 18 162/87 100 04/07/17 20:00 76 04/07/17 18:06 96 04/07/17 17:29 16 04/07/17 16:04 97.4 66 18 166/93 98 04/07/17 12:00 66 04/07/17 11:48 97.9 66 18 193/85 95 CBC/BMP: 04/08/17 0609 04/08/17 0609 Lab Results Laboratory Tests Test 04/08/17 06:09 White Blood Count 4.3 TH/MM3 Red Blood Count 3.55 MIL/MM3 Hemoglobin 12.4 GM/DL Hematocrit 35.7 % Mean Corpuscular Volume 100.7 FL Mean Corpuscular Hemoglobin 34.9 PG Mean Corpuscular Hemoglobin 34.7 % Concent Red Cell Distribution Width 12.7 % Platelet Count 97 TH/MM3 Mean Platelet Volume 8.8 FL Sodium Level 137 MEQ/L Potassium Level 4.0 MEQ/L Chloride Level 107 MEQ/L Carbon Dioxide Level 22.7 MEQ/L Anion Gap 7 MEQ/L Blood Urea Nitrogen 11 MG/DL Creatinine 1.24 MG/DL Estimat Glomerular Filtration 59 ML/MIN Rate Random Glucose 128 MG/DL Calcium Level 8.3 MG/DL Physical Exam General General Appearance: Well Developed, No Acute Distress, Comfortable, Obese Eyes Eye Exam: Pupils Equal, Pupils Reactive Ears & Nose Ears & Nose Exam: Nasal Mucosa [place] Throat Throat Exam: Oral Mucosa [place] & Moist Neck Neck Exam: Neck Supple, Trachea Midline Pulmonary Resp Exam: Clear Bilaterally, No Distress Cardiology CV Exam: Regular, Good Perfusion Gastrointestinal/Abdomen GI Exam: Soft, Non-Tender, Bowel Sounds Present, Non-Distended Musculoskeletal MS Exam: Joints Intact Integumentary Skin Exam: Warm, Dry Extremeties Extremities Exam: Pedal Pulses Palpable, Trace Edema Extremeties Remarks mild erythema both feet, tender to touch Neurologic Neuro Exam: Alert, Awake, Oriented, Speech Clear, Moving All Extremities, No Focal Deficits Psychiatric Psych Exam: Appropriate Responses VTE Prophylaxis VTE Prophylaxis Meds: Heparin PUD Prophylasis PUD Remarks Pepcid Assessment/Plan Assessment/Plan 1. Nontraumatic rhabdomyolysis, unknown cause. 2. Diabetes type 2, uncontrolled. 3. DUSTY 4. Leukocytosis 5. Right toe dislocation 6. HTN uncontrolled 7. Hx of DVT 8. Low back pain, radiculopathy, acute on chronic 9. Weakness etiology unclear 10. Radiculopathy, CT lumbar spine L2-L3 mod canal stenosis/C 2-C3 mild canal stenosis PLAN Rhabdomyolysis, non traumatic CPK trending down CPK pending continue with NS at 75/hr DUSTY creat markedly improved BP uncontrolled continue Cozaar to 100 mg PO BID continue Vasotec PRN Continue Norvasc BP better accuchecks with AC/HS will restart hypoglycemic since kidney function improved Weakness and acute on chronic back pain evaluated per neurology, work up in progress, rule myopathy, CIDP Cervical and lumbar spine MRI done, results noted consulted neurosurgery , Dr. Simms saw this morning. Options discussed, pt. states he wants non surgical treatment for now due to previous back surgery and multiple post complications in the past. continue with pain management continue with PT and OOB, pt. states he is getting stronger Left foot hallux ulceration right toe dislocation Podiatry evaluated, input appreciate, no surgery recommended needs to f//u podiatry as OP foot care emphasized CM for DC planning, SNF and CIR CPK pending Hopefully dc in am D/W RN D/W Dr. Cintron D/W pt D/W CM This pt was seen by myself and Dr. Cintron, this note is written on his behalf. Olivia Weinberg Apr 08, 2017 10:12
--- NOTE | 2017-04-08 11:26 | MB ---
cc: TL GUILLORY M.D., JAMES LARRAZABAL, CHRISTOPHER DATE OF CONSULTATION 04/08/2017 REASON FOR CONSULTATION Cervical and lumbar spinal stenosis. 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 He suffers from chronic orthostatic hypotension and relates that he has had extensive cardiac workup in the past without any underlying abnormality. Usually when he gets up, he stages from sitting and standing for a little while before he starts walking, but last Saturday and he got up to go into the bathroom and did not follow his usual protocol of getting up and did abruptly. In the bathroom he basically fell; it felt like his legs give out on him. He hit his forehead and subsequently he noticed numbness and paresthesias in the upper extremities along with weakness in the lower extremities. He has diabetic neuropathy and chronic numbness additionally in his feet but he says it is worse after this. He did not have any numbness in his hands which is new. He could not get up with weakness in the upper and lower extremities and had to call the fire department to get him up and was brought to [facility]. He denies any incontinence. At he denies any loss of consciousness. His CPKs have also been elevated. Initially they were 6,159 and, although been improving progressively, the last one yesterday was 2957. Workup included complete spine MRI scan and he was found to have moderate spinal stenosis at C3-4 from a disk/osteophyte complex with some cord compression, although no intrinsic cord changes are noted. The spinal canal is reduced down to about 6 mm. He also has extensive anterior osteophytes and degeneration at C5-6 level in particular and a lesser degree at C6-77, although no significant spinal stenosis is noted. There is also loss of cervical lordosis. MRI of the thoracic spine does not reveal any spinal stenosis. MRI of the lumbar spine reveals previous laminectomy it appears to be at L4-L5 and likely S1 levels. There is severe L2-3 stenosis from combination of facet and ligamentum flavum hypertrophy along with moderate L4-5 residual spinal stenosis. He relates history of lumbar laminectomy infusion in the 1980s and had severe complications including a DVT and pulmonary embolus as well as cystitis and it took him a year to recuperate from the surgery. He has a history of chronic lumbar fractures and chronic back pain related thereof. There are multiple compression fractures noted in the lumbar spine at L1, L2, L3, L4 and L5 levels as well as a lesser degree at T11-T12 levels also. These all appear to be chronic with no qT2 weighted changes. He has been seen by Neurology and given the cervical and lumbar stenosis, neurosurgical consultation requested. PAST MEDICAL HISTORY 1. Diabetes mellitus with diabetic neuropathy in the lower extremities with chronic numbness. 2. Multiple lumbar fractures with chronic low back pain with a history of L4-S1 laminectomy with fusion in the , chronic positional hypotension. 3. Remote history of DVT and pulmonary embolus. 4. Avascular necrosis right hip. 5. Anxiety, depression. 6. Mitral valve prolapse. PAST SURGICAL HISTORY 1. Cholecystectomy. 2. Right hip ORIF. 3. Tonsillectomy. 4. Inguinal cyst resection. MEDICATIONS PRIOR TO ADMISSION 1. Xanax 1 mg p.o. q.h.s. 2. Aspirin 325 mg daily. 3. Lipitor 10 mg q.h.s. 4. Glimepiride 2 mg p.o. q.h.s. 5. Losartan 50 mg b.i.d. 6. Metformin 500 mg q.h.s. 7. Pentazocine. 8. Naloxone 50/0.5 daily. ALLERGIES CONTRAST MEDIA. DIFLUCAN. TYLENOL. NONSTEROIDAL ANTI-INFLAMMATORY AGENTS. 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 He is a former smoker. Usually drinks two alcoholic beverages every evening. LABORATORY STUDIES White blood cell count 4.3, hemoglobin 12.4, platelet count is 97. PT 11.1, INR 1.0, PTT 26.2. Sodium 137, potassium 4.0, BUN 11, creatinine 1.24, glucose 128. CK was 2957. Urinalysis is negative. PHYSICAL EXAMINATION Vitals: Temperature 97.6, pulse 67, respiratory rate 16, blood pressure 169/90, oxygen saturation is 98% on room air. HEAD: Normocephalic, atraumatic. NECK: Supple. EXTREMITIES: He has some abrasions of his knees but no obvious deformity. NEUROLOGIC: He is awake, alert. Cranial nerves are intact. Motor Strength: Deltoids are 5/5, biceps are 4+/5, triceps are 4/5, hand intrinsics are 4/5. Iliopsoas and quadriceps are 4-/5, hamstrings are 4/5. Dorsiflexion left is 4-/5, right is 4/5, flexion is 4/5. Negative Babinski. He has absent reflexes in the upper and lower extremities with no Tri's or clonus. He has decreased sensation in a stocking format in his feet bilaterally. He has light touch sensation intact in the upper extremities. IMPRESSION 1. C3 and C4 moderate spinal stenosis with cord compression. His symptoms are consistent with spinal cord injury likely related to the fall and abrupt neck extension flexion movement with complaints of weakness and numbness in the upper and lower extremities. 2. Severe L2-3 and moderate L4-5 spinal stenosis which may also be contributing to his lower extremity weakness, although there is no incontinence or cauda equina syndrome. He does have a history of L4-S1 laminectomy with fusion. 3. Medical comorbidities including obesity, history of DVT. Pulmonary embolus, positional hypotension with frequent falls, elevated CPK of unclear significance, progressive thrombocytopenia, and diabetes mellitus with diabetic neuropathy. PLAN Ideally once his medical condition is more stable, I would recommend anterior C3-4 microdiskectomy and fusion to address the cervical stenosis as well as L2-3 and L4-5 laminectomy. Surgeries do carry at least a moderate risk for perioperative complications given his history and comorbidities. He at this point is reluctant to consider any surgery for his spine given his very poor and complicated experience from his lumbar spine surgery in the past. He is aware that given the persistent stenosis he is at increased risk for weakness or paralysis with any further falls in particular. He relates that he would like to continue with conservative management and with physical and occupational therapy and rehab and see how his symptoms progress. If he does not improve, then he will follow up with me in the office for reevaluation of his options. MD MAYO Jose/JESS /9:51 AM /10:55 AM
[2017-04-08 12:16] LABS: CKMB 2.4 NG/ML (0.5-3.6)
[2017-04-08] MEDS ORDERED: BISACODYL 10 MG SUPP RECTAL ONE (15:15)
[2017-04-08] MEDS ORDERED: cloNIDine HCL 0.1 MG TAB PO PRN (15:15)
[2017-04-08] MEDS: GLIMEPIRIDE 2 MG TAB PO SCH (22:32)
[2017-04-09] VITALS: BP 158/83; PULSE 70; RESP 18; TEMP 97.5; O2SAT 98
[2017-04-09 04:00] VITALS: BP 161/63; PULSE 74; RESP 17; TEMP 97.5; O2SAT 96
[2017-04-09] MEDS: INSULIN NovoLIN REGULAR SUPPLEMENTAL SCALE SQ SCH ×2 (06:05→11:00)
[2017-04-09 08:00] VITALS: BP 166/77; PULSE 79; RESP 19; TEMP 98.2; O2SAT 98
[2017-04-09] MEDS: SODIUM CHLORIDE 0.9% FLUSH 10 ML FLUSH IV FLUSH SCH (09:00)
[2017-04-09] MEDS: ASPIRIN EC 325 MG TABEC PO SCH (10:04)
[2017-04-09] MEDS: LOSARTAN 50 MG TAB PO SCH (10:04)
[2017-04-09] MEDS: MAGNESIUM HYDROXIDE SUSP 30 ML CUP PO PRN (10:04)
[2017-04-09] MEDS: amLODIPine BESYLATE 5 MG TAB PO SCH (10:05)
[2017-04-09] MEDS: FAMOTIDINE 20 MG TAB PO SCH (10:05)
[2017-04-09] MEDS: HEPARIN SODIUM - SQ 10,000 UNITS/ML VIAL SQ SCH (10:10)
[2017-04-09] MEDS: MUPIROCIN 2% OINT 22 GM TUBE TOPICAL SCH (10:11)
[2017-04-09] MEDS: SODIUM CHLOR 0.9% 1000 ML INJ 1,000 ML IV SCH (10:15)
[2017-04-09] MEDS ORDERED: COZA50TA PO (10:17)
[2017-04-09] MEDS ORDERED: AMLO5 PO (10:17)
[2017-04-09] MEDS ORDERED: OXYC-392 PO (10:17)
--- NOTE | 2017-04-09 10:17 | HHI.DCPOC ---
Discharge Care Plan Diagnosis: (1) Rhabdomyolysis (2) Fall (3) Toe joint dislocation (4) Renal insufficiency Your Health Problems Are: Anxiety Difficulty with ADL Goals to Promote Your Health * To prevent worsening of your condition and complications * To maintain your health at the optimal level Directions to Meet Your Goals Take your medications as prescribed Follow your dietary instruction Follow activity as directed Keep your appointments as scheduled Take your immunizations and boosters as scheduled If your symptoms worsen call your PCP, if no PCP go to Urgent Care Center or Emergency Room Smoking is Dangerous to Your Health. Avoid second hand smoke Call the 24-hour hour crisis hotline for domestic abuse at Olivia Weinberg Apr 09, 2017 10:17
--- NOTE | 2017-04-09 10:21 | HHI.PR ---
Subjective Subjective Remarks no bm yet refused dulcolax yesterday, "I have a BM every 3-4 days" informed he needs to have BM before going to [facility] low back pain stable no cp no sob no fever Review of Systems Constitutional Constitutional Remarks 12 point ros completed, negative except as noted above Vitals/Results Intake & Output 04/08/17 04/08/17 04/09/17 15:00 23:00 07:00 Intake Total 593 ml 360 ml 240 ml Output Total 553 ml 425 ml 225 ml Balance 40 ml -65 ml 15 ml Intake Oral 240 ml 360 ml 240 ml IV Total 353 ml Output Urine Total 553 ml 425 ml 225 ml # Bowel Movements 0 0 0 Vital Signs Vital Signs Date Time Temp Pulse Resp B/P Pulse Ox O2 Delivery O2 Flow Rate FiO2 04/09/17 08:00 98.2 79 19 166/77 98 04/09/17 04:00 97.5 74 17 161/63 96 04/09/17 00:00 97.5 70 18 158/83 98 04/08/17 20:00 69 04/08/17 19:30 97.7 73 18 158/80 98 04/08/17 18:32 102 04/08/17 17:00 98.4 117 16 144/92 97 04/08/17 15:16 75 04/08/17 12:46 98.0 69 16 161/78 99 04/08/17 11:11 86 CBC/BMP: 04/08/17 0609 04/08/17 0609 Lab Results Laboratory Tests Test 04/08/17 04/09/17 11:54 05:12 Nasal Screen MRSA (PCR) MRSA NOT DETECTED Total Creatine Kinase 2792 U/L Creatine Kinase MB 2.0 NG/ML Creatine Kinase MB % 0.1 % Physical Exam General General Appearance: Well Developed, No Acute Distress, Comfortable, Obese Eyes Eye Exam: Pupils Equal, Pupils Reactive Ears & Nose Ears & Nose Exam: Nasal Mucosa [place] Throat Throat Exam: Oral Mucosa [place] & Moist Neck Neck Exam: Neck Supple, Trachea Midline Pulmonary Resp Exam: Clear Bilaterally, No Distress Cardiology CV Exam: Regular, Good Perfusion Gastrointestinal/Abdomen GI Exam: Soft, Non-Tender, Bowel Sounds Present, Non-Distended Musculoskeletal MS Exam: Joints Intact Integumentary Skin Exam: Warm, Dry Extremeties Extremities Exam: Pedal Pulses Palpable, Trace Edema Extremeties Remarks mild erythema both feet, tender to touch Neurologic Neuro Exam: Alert, Awake, Oriented, Speech Clear, Moving All Extremities, No Focal Deficits Psychiatric Psych Exam: Appropriate Responses VTE Prophylaxis VTE Prophylaxis Meds: Heparin PUD Prophylasis PUD Remarks Pepcid Assessment/Plan Assessment/Plan 1. Nontraumatic rhabdomyolysis, unknown cause. 2. Diabetes type 2, uncontrolled. 3. DUSTY 4. Leukocytosis 5. Right toe dislocation 6. HTN uncontrolled 7. Hx of DVT 8. Low back pain, radiculopathy, acute on chronic 9. Weakness etiology unclear 10. Radiculopathy, CT lumbar spine L2-L3 mod canal stenosis/C 2-C3 mild canal stenosis PLAN Rhabdomyolysis, non traumatic CPK trending down Enc. PO fluid intake DUSTY creat markedly improved BP uncontrolled continue Cozaar to 100 mg PO BID continue Vasotec PRN Continue Norvasc BP better accuchecks with AC/HS continue hypoglycemic agents Weakness and acute on chronic back pain evaluated per neurology, work up in progress, rule myopathy, CIDP Cervical and lumbar spine MRI done, results noted consulted neurosurgery , Dr. Simms saw this morning. Options discussed, pt. states he wants non surgical treatment for now due to previous back surgery and multiple post complications in the past. continue with pain management continue with PT and OOB, pt. states he is getting stronger Left foot hallux ulceration right toe dislocation Podiatry evaluated, input appreciate, no surgery recommended needs to f//u podiatry as OP foot care emphasized Needs to have BM, Dulcolax supp x 1 today DC to [facility] F/U Dr. Simms 2 weeks Diet-diabetic Activity-as tolerated D/W RN D/W Dr. Cintron D/W pt D/W CM This pt was seen by myself and Dr. Cintron, this note is written on his behalf. Discharge Minutes: 45 Olivia Weinberg Apr 09, 2017 10:20
[2017-04-09] MEDS ORDERED: BISACODYL 10 MG SUPP RECTAL ONE (11:00)
[2017-04-09 12:00] VITALS: BP 151/87; PULSE 77; RESP 18; TEMP 97.8; O2SAT 97
[2017-04-12] MEDS ORDERED: AMLO5 PO (09:36)
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
== END 2017-04-09 15:26 | DRG 558 ==
LOC: NEPC 20:13 → NEDA 23:21 → N06A 04-06 01:05
PROVIDERS: ADMIT Internal Medicine; ATTEND Internal Medicine
DX: M62.82 Rhabdomyolysis (principal); N17.9 Acute kidney failure, unspecified; E11.40 Type 2 diabetes mellitus with diabetic neuropathy, unspecified; D69.6 Thrombocytopenia, unspecified; E11.65 Type 2 diabetes mellitus with hyperglycemia; M48.02 Spinal stenosis, cervical region; G89.29 Other chronic pain; I10 Essential (primary) hypertension; I34.1 Nonrheumatic mitral (valve) prolapse; M17.12 Unilateral primary osteoarthritis, left knee; M17.11 Unilateral primary osteoarthritis, right knee; M48.06 Spinal stenosis, lumbar region; F10.20 Alcohol dependence, uncomplicated; E66.9 Obesity, unspecified; Z68.30 Body mass index [BMI] 30.0-30.9, adult; R29.6 Repeated falls; Z86.14 Personal history of Methicillin resistant Staphylococcus aureus infection; Z86.711 Personal history of pulmonary embolism; Z86.718 Personal history of other venous thrombosis and embolism; Z87.891 Personal history of nicotine dependence; W18.30XA Fall on same level, unspecified, initial encounter; Y92.9 Unspecified place or not applicable
CPT/HCPCS: 26770; 28660; 71010; 72100; 72141; 72146; 72148; 73080; 73564; 73630; 73660; 80048; 81001; 82550; 82552; 82607; 82948; 85025; 85027; 85610; 85730; 87641; 96374; J1644; J2270; J7030; P9612

== ENCOUNTER → 2017-12-19 | Outpatient (CLI) | payer MEDICARE ==
[~2017-12-19] MED LIST changes: +AMLO5 PO; -ASPI325T24 PO; +ASPI325T33 PO; -CENTTAB9 PO; +COZA50TA PO; -GLUCTAB PO; +LIPI10TA PO; -LOFI54TA PO; -LOSA50TA PO; -NITR0.4S SL; +OXYC-392 PO; -PROT40TA PO; -ROSU40 PO; +XANA1TAB2 PO; -XANA1TAB6 PO; -[UNRECOGNIZED DRUG - CODE] PO
[2017-12-19 07:52] LABS: ALBUMIN 3.6 GM/DL (3.4-5.0); AST (GOT) 31 U/L (15-37); BICARBONATE 28.5 MEQ/L (21.0-32.0); BLOOD UREA NITROGEN 12 MG/DL (7-18); CALCIUM 8.9 MG/DL (8.5-10.1); CHLORIDE 102 MEQ/L (98-107); CREATININE 1.51 MG/DL (0.60-1.30); GLOMERULAR FILTRATION RATE 46 ML/MIN (>89); GLUCOSE,FASTING 120 MG/DL (74-99); SODIUM (NA) 138 MEQ/L (136-145)
[2017-12-19 07:53] LABS: ALT (GPT) 45 U/L (12-78); CHOLESTEROL 177 MG/DL (120-200)
[2017-12-19 08:03] LABS: ALKALINE PHOSPHATASE 97 U/L (45-117); CHOLESTEROL/ HDL RATIO 3.55 RATIO; HDL CHOLESTEROL 49.8 MG/DL (40.0-60.0); LDL CHOLESTEROL 98 MG/DL (0-99); TOTAL BILIRUBIN ADULT 0.4 MG/DL (0.2-1.0); TRIGLYCERIDES 147 MG/DL (42-150)
[2017-12-19 08:17] LABS: AUTOMATED NEUTROPHIL # 3.2 TH/MM3 (1.8-7.7); BASOPHIL % 0.8 % (0.0-2.0); EOSINOPHIL # 0.2 TH/MM3 (0-0.4); EOSINOPHIL % 4.1 % (0.0-4.0); HEMATOCRIT 45.2 % (39.0-51.0); HEMOGLOBIN 16.1 GM/DL (13.0-17.0); LYMPH % 31.6 % (9.0-44.0); LYMPHOCYTE # 1.8 TH/MM3 (1.0-4.8); MEAN CELL VOLUME 99.9 FL (80.0-100.0); MEAN CORPUSCULAR HEMOGLOBIN 35.6 PG (27.0-34.0); MEAN CORPUSCULAR HGB CONC 35.7 % (32.0-36.0); MEAN PLATELET VOLUME 7.6 FL (7.0-11.0); MONOCYTE # 0.3 TH/MM3 (0-0.9); NEUT % 57.5 % (16.0-70.0); PLATELET COUNT 154 TH/MM3 (150-450); RED BLOOD COUNT 4.52 MIL/MM3 (4.50-5.90); RED CELL DISTRIBUTION WIDTH 13.3 % (11.6-17.2); WHITE BLOOD COUNT 5.6 TH/MM3 (4.0-11.0)
[2017-12-19 17:07] LABS: HEMOGLOBIN A1C 5.5 % (4.3-6.0)
== END ==
LOC: CLAB 06:58
PROVIDERS: ATTEND Internal Medicine
DX: K76.89 Other specified diseases of liver (principal); N18.3 Chronic kidney disease, stage 3 (moderate); R52 Pain, unspecified; I25.10 Atherosclerotic heart disease of native coronary artery without angina pectoris; E11.42 Type 2 diabetes mellitus with diabetic polyneuropathy; E78.5 Hyperlipidemia, unspecified; I10 Essential (primary) hypertension; E66.9 Obesity, unspecified
CPT/HCPCS: 36415; 80053; 80061; 83036; 84443; 85025